=== PATIENT | female | born 1965 | race American Indian/Alaskan Native ===

== ENCOUNTER 2017-05-23 09:37 | Emergency (ER) | payer OTHER ==
[2017-05-23 10:08] LABS: Basophils % (Auto) 0.5 % (0.0-1.8); Eosinophils % (Auto) 3.4 % (0.0-4.3); Hematocrit 41.2 % (30.3-42.9); Hemoglobin 13.5 gm/dl (10.1-14.3); Mean Corpuscular HGB Conc 33 % (30-34); Mean Corpuscular Hemoglobin 29 pg (28-32); Mean Corpuscular Volume 89 fl (79-97); Platelet Count 245 K/mm3 (140-440); Red Blood Count 4.63 M/mm3 (3.65-5.03); Red Cell Distribution Width 14.5 % (13.2-15.2); White Blood Count 4.8 K/mm3 (4.5-11.0)
--- NOTE | 2017-05-23 10:21 | XRay Report ---
ROUTINE CHEST, TWO VIEWS: HISTORY: chest pain. The trachea, heart, mediastinal contour, lung leiva and bony thorax are unremarkable. IMPRESSION: Unremarkable chest x-ray.
[2017-05-23 10:30] LABS: Anion Gap 19 mmol/L; Blood Urea Nitrogen 16 mg/dL (7-17); Calcium 8.5 mg/dL (8.4-10.2); Carbon Dioxide 23 mmol/L (22-30); Chloride 106.4 mmol/L (98-107); Glucose 92 mg/dL (65-100); Potassium 3.9 mmol/L (3.6-5.0); Sodium 144 mmol/L (137-145)
[2017-05-23] MEDS ORDERED: NORCO 10/325 PO ONE (12:34)
--- NOTE | 2017-05-23 15:21 | Emergency Department Report ---
HPI - General Chief Complaint: Chest Pain Time Seen by Provider: 05/23/17 11:45 - HPI HPI: PATIENT IS HERE WITH CHEST PAIN, WORSE WITH INSPIRATION, ACCOMPANIED BY NAUSEA, NO FEVER, NO COUGH. STATES PAIN IS 7/10 SHARP, FEELS LIKE SOMEONE IS SQUEEZING HER THROAT. PATIENT DENIES ANY ALLEVIATING OR EXACERBATING FACTORS. ED Past Medical Hx - Past Medical History Previous Medical History?: Yes Hx Hypertension: Yes Hx GERD: Yes Additional medical history: high cholesterol, - Surgical History Past Surgical History?: Yes Additional Surgical History: Neck surgury x3. hernia "in stomach" - Family History Family history: hypertension - Social History Smoking Status: Light Tobacco Smoker Substance Use Type: None - Medications Home Medications: Home Medications Medication Instructions Recorded Confirmed Last Taken Type Amoxicillin [Trimox CAP] 500 mg PO Q8H #21 capsule 06/15/16 Unknown Rx Ibuprofen [Motrin] 600 mg PO Q8H PRN #20 tablet 06/15/16 Unknown Rx Prednisone [predniSONE 10 mg 10 mg PO .TAPER #1 tab.ds.pk 06/15/16 Unknown Rx (6-Day Pack, 21 Tabs)] ED Review of Systems ROS: Stated complaint: UPPER BACK PAIN/CP/PHAM/COUGH Other details as noted in HPI Comment: All other systems reviewed and negative Respiratory: no symptoms reported Cardiovascular: chest pain, palpitations Physical Exam - Physical Exam Vital Signs: Vital Signs 05/23/17 05/23/17 05/23/17 09:47 11:23 11:30 Temperature 98.7 F Pulse Rate 71 74 Respiratory 20 15 Rate Blood Pressure 135/95 137/82 137/82 Blood Pressure [Left] O2 Sat by Pulse 98 100 Oximetry 05/23/17 05/23/17 05/23/17 11:40 11:50 11:56 Temperature Pulse Rate 77 71 72 Respiratory 13 17 18 Rate Blood Pressure 137/82 137/82 Blood Pressure 137/82 [Left] O2 Sat by Pulse 100 99 99 Oximetry 05/23/17 05/23/17 05/23/17 12:00 12:10 12:20 Temperature Pulse Rate 71 71 77 Respiratory 10 L 15 13 Rate Blood Pressure 135/83 137/82 137/82 Blood Pressure [Left] O2 Sat by Pulse 99 98 99 Oximetry 05/23/17 05/23/17 05/23/17 12:30 12:46 12:50 Temperature Pulse Rate 73 76 71 Respiratory 12 16 16 Rate Blood Pressure 137/82 137/82 137/82 Blood Pressure [Left] O2 Sat by Pulse 100 94 98 Oximetry 05/23/17 05/23/17 05/23/17 13:00 13:10 13:20 Temperature Pulse Rate 66 70 67 Respiratory 12 10 L 14 Rate Blood Pressure 154/94 135/83 135/83 Blood Pressure [Left] O2 Sat by Pulse 100 99 95 Oximetry 05/23/17 05/23/17 13:30 13:40 Temperature Pulse Rate 70 62 Respiratory 11 L 13 Rate Blood Pressure 135/83 135/83 Blood Pressure [Left] O2 Sat by Pulse 99 99 Oximetry Physical Exam: gen: alert and oriented x3 heent: perrla, eomi cv: rrr, nl s1, s2 lungs: cta bila abd: s,nt,nd, pos bs ext: no edema neuro: no deficits psych: normal mood, ED Course Vital Signs 05/23/17 05/23/17 05/23/17 09:47 11:23 11:30 Temperature 98.7 F Pulse Rate 71 74 Respiratory 20 15 Rate Blood Pressure 135/95 137/82 137/82 Blood Pressure [Left] O2 Sat by Pulse 98 100 Oximetry 05/23/17 05/23/17 05/23/17 11:40 11:50 11:56 Temperature Pulse Rate 77 71 72 Respiratory 13 17 18 Rate Blood Pressure 137/82 137/82 Blood Pressure 137/82 [Left] O2 Sat by Pulse 100 99 99 Oximetry 05/23/17 05/23/17 05/23/17 12:00 12:10 12:20 Temperature Pulse Rate 71 71 77 Respiratory 10 L 15 13 Rate Blood Pressure 135/83 137/82 137/82 Blood Pressure [Left] O2 Sat by Pulse 99 98 99 Oximetry 05/23/17 05/23/17 05/23/17 12:30 12:46 12:50 Temperature Pulse Rate 73 76 71 Respiratory 12 16 16 Rate Blood Pressure 137/82 137/82 137/82 Blood Pressure [Left] O2 Sat by Pulse 100 94 98 Oximetry 05/23/17 05/23/17 05/23/17 13:00 13:10 13:20 Temperature Pulse Rate 66 70 67 Respiratory 12 10 L 14 Rate Blood Pressure 154/94 135/83 135/83 Blood Pressure [Left] O2 Sat by Pulse 100 99 95 Oximetry 05/23/17 05/23/17 13:30 13:40 Temperature Pulse Rate 70 62 Respiratory 11 L 13 Rate Blood Pressure 135/83 135/83 Blood Pressure [Left] O2 Sat by Pulse 99 99 Oximetry ED Medical Decision Making - Lab Data Result diagrams: 05/23/17 09:57 05/23/17 09:57 Critical care attestation.: If time is entered above; I have spent that time in minutes in the direct care of this critically ill patient, excluding procedure time. ED Disposition Clinical Impression: Chest pain Disposition: OP ADMIT IP TO THIS HOSP Is pt being admited?: Yes Does the pt Need Aspirin: Yes Condition: Stable Instructions: Chest Pain (ED) Referrals: PRIMARY CARE, [Primary Care Provider] - 3-5 Days
[2017-05-23] MEDS ORDERED: NACL ONE (15:32)
--- NOTE | 2017-05-23 16:03 | Admit Criteria Form ---
Admission Criteria Documentation: CARDIOLOGY GRG Clinical Indications for Admission to Inpatient Care ([place]/check or initial the applicable condition/criteria) Hospital admission is needed for appropriate care of the patient because of ANY ONE of the following: [ ] I. Hemodynamic instability as indicated by ALL of the following (1)(2)(3) (4)(5)(6)(7)(8)(9)(10) [ ]a) Vital sign abnormality not readily corrected by appropriate treatment with 12-24 hours for ANY ONE: [ ]i) Hypotension that persists despite appropriate treatment (eg, volume repletion) [ ]ii) Tachycardiathat persists despite appropriate tx ( e.g., analgesia, fluids, sedation as indicated [ ]iii) Orthostatic vital sign changes that persists despite appropriate treatment (eg, volume repletion) [ ]b) Vital sign abnormailty that is severe indicated by ANY ONE of the following: [ ]i) Inadequate perfusion indicated by ANY ONE of the following: [ ] 1) Lactic acidosis (> 2 mmol/L) [ ] 2) New abnormal capillary refill (> 3 seconds) [ ] 3) Reduced urine output [ ] 4) New altered mental status [ ] 5) Myocardial Ischemia [ ] 6) Other metabolic acidosis (arterial pH <7.35 ) not otherwise explained. [ ]ii) Mean arterial pressure[A] less than 60 mm Hg [ ]iii) Mean arterial pressure[A] less than 70 mm Hg after 30 minutes of appropriate treatment (eg, fluid resuscitation) [ ]iv) Sustained heart rate greater than 120 beats per minute in adult or child 6 years or older[B] [ ]v) IV inotropic or vasopressor medication required to maintain adequate blood pressure or perfusion [ ] II. Severe heart failure as indicated by ANY ONE of the following(17)(18) [ ]a) Respiratory distress [ ]b) Hypotension [ ]c) Debilitating anasarca refractory to therapy (eg, tissue breakdown with infection)[C](19) [ ]d) Cardiac arrhythmias of immediate concern [ ]e) Myocardial ischemia [ ] III. Cardiac arrhythmias or findings of immediate concern indicated by ANY ONE of the following (21)(22): [ ] a) Heart rhythms that are inherently dangerous or unstable indicated by ANY ONE of the following (23)(24)(25): [ ] i) Resuscitated ventricular fibrillation or cardiac arrest [ ] ii) Ventricular escape rhythm [ ] iii) Sustained ventricular tachycardia (30 seconds or more of ventricular rhythm at greater than 100 beats per minute) [ ] iv) Nonsustained ventricular tachycardia and ANY ONE of the following: [ ] 1) Suspected cardiac ischemia as cause or consequence of ventricular tachycardia [ ] 2) Acute myocarditis [ ] b) Unstable cardiac conduction defects indicated by ANY ONE of the following(25)(26)(27) [ ] i) Type II second-degree atrioventricular block [ ]ii) Third-degree atrioventricular block [ ]iii) New-onset left bundle branch block with suspected myocardial ischemia [ ]c) Any heart rhythm and ANY ONE of the following (23)(24)(28)(29) (30) [ ] i) Continuous long-term ECG monitoring needed (e.g., initiation of drug requiring monitoring for more than 24 hours) [ ] ii) Patient has automatic implanted cardioverter defibrillator that is repeatedly firing, malfunctioning, or in need of immediate adjustment of settings beyond the scope of ambulatory or observation care [ ]d) Heart rhythms of concern due to ANY ONE of the following: [ ] i) Hypotension [ ] ii) Respiratory distress [ ] iii) Association with other significant symptoms (e.g., bradycardia with syncope or ongoing dizziness, supraventricular tachycardia with chest pain (28)(29)(31) [ ] IV. Monitoring for cardiac contusion beyond the scope of observation care needed [A](32)(33)(34) [ ] V. Surgical or device complication (e.g., valve replacement complication , ICD disfunction or pacemaker dysfunction) (49)(50)(51)(52)(53)(54) [ ] . Inpatient palliative care needed. [F](51)(52) Also use Inpatient Palliative Care Criteria [ ] VII. Nonbacterial thrombotic (marantic) endocarditis(43)(44)(55)(56)(57) [X ] VIII. Cardiology condition, symptom, or finding for which emergency and observation care has failed or are not considered appropriate. [ ] IX. Acute valvular disease requiring inpatient as indicated by ANY ONE of the following (40)(41) [ ]a) Acute valvular regurgitation (42) [ ]b) Noninfectious valvulitis (43)(44) [ ]c) Obstructive valve thrombosis (45)(46) [ ]d) Paravalvular leak(47)(48) [ ]e) Other significant valvular disorder remaining after emergency or observation level of care (as appropriate) [ ]X. Pericardial disease requiring inpatient treatment as indicated by ANY ONE of the following (35)(36)(37)(38) [ ]a) Suspected tamponade [ ]b) Hemopericardium [ ]c) Other significant pericardial disorder remaining after emergency or observation level of care (as appropriate)(39) [ ] XI. Cardiac ischemia beyond scope of emergency and observation care. [ ] XII. Cyanotic heart disease requiring inpatient care as indicated by 1 or more of the following(58)(59)(60): [ ]a) Acute onset of hypoxemia [ ]b) Exacerbation [ ] XIII. Hypertension requiring inpatient treatment as indicated by ANYONE of the following(11)(12)(13)(14): [ ]a) Severe hypertension (SBP greater than 180 mm Hg or DBP greater than 110 mm Hg, or greater than the 95th percentile for age, gender, and height in pediatric patients) that cannot be controlled (eg, to SBP less than 160 mm Hg and DBP less than 100 mm Hg) by emergency department or observation care treatment(15) [ ]b) Acute end organ damage secondary to hypertension (SBP greater than 140 mm Hg or DBP greater than 90 mm Hg) as indicated by ANYONE of the following: [ ] i) Hypertensive encephalopathy (eg, Altered mental status)(16) [ ] ii) Cerebral infarction [ ] iii) Intracranial hemorrhage [ ] iv) Myocardial ischemia or infarction [ ] v) Heart failure (eg, pulmonary edema) [ ] vi) Aortic dissection [ ] vii) Increased creatinine (new) with reduction of more than 50% in estimated glomerular filtration rate from baseline [ ] viii) Papilledema [ ] ix) Retinal hemorrhage [ ] x) Microangiopathic hemolytic anemia [ ] xi) Seizure [ ] xii) Other significant finding secondary to hypertension [ ] XIV. Complications of transplanted heart indicated by ANY ONE of the following(61): [ ]a) Acute graft rejection requiring inpatient management (eg, intravenous imunosuppression)(62)(63) [ ]b) Acute graft heart failure indicated by ANY ONE of the following(64): [ ] i) Hemodynamic instability [ ] ii) Cardiac arrhythmias of immediate concern [ ] iii) Pulmonary edema that is very severe (eg, mechanical ventilation needed, imminent or likely, need for 100% oxygen to keep oxygen saturation above 90%) [ ] iv) Pulmonary edema that is persistent as indicated by ALL of the following: [ ] 1) New need for oxygen therapy to keep oxygen saturation above 90 % (or increased FiO2 need from baseline) [ ] 2) Has not improved sufficiently with emergency department or observation care IV diuretics or other heart failure treatments[E]. [ ] iv) Altered mental status that is severe or persistent [ ] iv) Increased creatinine (new on laboratory test) with reduction of more than 50% in estimated glomerular filtration rate from baseline [ ] iv) Progressively (ongoing) rising creatinine (known from past laboratory test) with reduction of more than 25% in estimated glomerular filtration rate from baseline [ ] iv) Acute renal failure [ ] iv) Acute peripheral ischemia (eg, examination shows pulseless, cool, mottled, or cyanotic extremity) [ ] iv) Pulmonary artery catheter monitoring needed [ ] iv) Other sign or symptom of heart failure requiring inpatient treatment (ie, too severe or not responsive to outpatient and observation care treatment) [ ]c) Infection requiring inpatient management (eg, Hemodynamic instability, need for intravenous antimicrobial treatment)(66)(67)(68)(69)(70) [ ]d) Cardiac allograft vasculopathy requiring inpatient management (eg evidence of cardiacischemia)(71) [ ]e) Other complication of transplanted heart (eg, stroke, severe pulmonary hypertension, severe valvular dysfunction) requiring inpatient management(72) The original [employer] content created by [employer] has been revised. The portions of the content which have been revised are identified through the use of italic text or in bold, and [facility] has neither reviewed nor approved the modified material. All other unmodified content is copyright [employer] [facility]. Please see references footnoted in the original [employer] [facility] edition 2017 Admission Criteria Met: Yes
--- NOTE | 2017-05-23 16:49 | Cat Scan Report ---
CTA of the chest: Chest pain. Stress administration using pulmonary embolus protocol transverse images were obtained through the chest into the upper abdomen. Coronal and sagittal 2-D reformatted images are obtained in addition to 3-D MIP image. There is good opacification of the pulmonary arterial vasculature. No filling defect identified. There no filling defects in the cardiac chambers. The thoracic aorta is normal in size and contour. No hilar or mediastinal adenopathy appreciated. There are diffuse emphysematous cystic-appearing changes in the upper lobes bilaterally. There is a 7.8 mm noncalcified subpleural nodule in the posterior right lung on image 125 of series 2. A nodular appearing density is also identified at the extreme right lung base posteriorly but this may be related to adjacent atelectasis. No other pulmonary nodule is identified. Bibasilar areas of atelectasis are present. No abnormality identified on the abdominal images. Impression: 1. Indeterminate right pulmonary nodule. Low suspicion of right basilar nodule which is more likely atelectasis. 2. Emphysematous-appearing changes in both upper lobes. 3. No evidence of pulmonary embolus. Recommendation: Right pulmonary nodule/nodules need followup. If the patient is not a smoker nor history of malignancy repeat exam in 4-6 months is recommended.
[2017-05-23 18:06] VITALS: BP 139/84
--- NOTE | 2017-06-01 07:47 | Short Stay Summary ---
Short Stay Documentation Narrative H&P: 51 YO Female with HTN, GERD, HLD, Nicotine Dependence presents to ED for evaluation of chest pain. Pt seen and evaluated in ED and treated with serial cardiac enzymes, ekg, telemetry, and supportive care. D dimer was normal. Pt medically optimized and bacl to usual state of health. Pt symptoms resolved. Pt discharged home and instructed to f/u pcp 1wk, cardiology prn. - History Past Medical History: GERD, hypertension, hyperlipidemia Past Surgical History: hernia repair, Other (neck surgery) Social history: single, smoking, no alcohol abuse, no prescription drug abuse - Allergies and Medications Current Medications: Allergies No Known Allergies Allergy (Verified 06/15/16 07:57) Home Medications Medication Instructions Recorded Confirmed Last Taken Type Cyclobenzaprine HCl [Flexeril 5 MG 5 mg PO BID PRN #20 tab 05/23/17 Unknown Rx TAB] Hydrochlorothiazide [Hctz] 12.5 mg PO QDAY 05/23/17 05/23/17 Unknown History Lisinopril [Zestril TAB] 40 mg PO QDAY 05/23/17 05/23/17 Unknown History Pantoprazole [Protonix] 40 mg PO QDAY #30 tablet 05/23/17 Unknown Rx Ranitidine HCl [Zantac 150 MG TAB] 150 mg PO BID 05/23/17 05/23/17 Unknown History Rosuvastatin (Nf) [Crestor] 10 mg PO QHS 05/23/17 05/23/17 Unknown History traMADol [Ultram] 50 mg PO Q4HR PRN 05/23/17 05/23/17 Unknown History - Physical exam General appearance: no acute distress Breasts: no change in shape, no swelling Gastrointestinal: normal Female Genitourinary: normal Extremities: pulses symmetrical, No edema - Disposition Condition at discharge: Stable Disposition: DC-01 TO HOME OR SELFCARE - Discharge Diagnoses (1) Chest pain Status: Acute Qualifiers: Chest pain type: C Ischemic chest pain type: I Comment: atypical, secondary to gerd (2) GERD (gastroesophageal reflux disease) Status: Acute Qualifiers: Esophagitis presence: E Comment: ppi therapy (3) HTN (hypertension) Status: Acute Qualifiers: Hypertension type: essential hypertension Qualified Code(s): I10 - Essential (primary) hypertension Comment: resume home medication (4) Nicotine dependence Status: Acute Qualifiers: Nicotine product type: N Substance use status: in remission Comment: supportive care, cessation counseling Short Stay Discharge Plan Follow up with: PRIMARY CARE, [Primary Care Provider] - 3-5 Days Prescriptions: Cyclobenzaprine HCl [Flexeril 5 MG TAB] 5 mg PO BID PRN #20 tab PRN Reason: Spasms Pantoprazole [Protonix] 40 mg PO QDAY #30 tablet
--- NOTE | 2017-06-05 10:04 | History and Physical Report ---
History of Present Illness Chief complaint: my chest hurts History of present illness: 51 YO Female with HTN, GERD, HLD, Nicotine Dependence presents to ED for evaluation for chest pain. Pt seen and evaluated in ED and found to have atypical chest pain. Pt underwent serial cardiac enzymes, ekg, and telemetry monitoring were not indicative of acute ischemia. D dimer was negative. Pt symptoms found secondary to GERD and muscle spasms. PT medically optimized and back to usual state of health. Pt discharged home and instructed to f/u pcp 1wk. Past History Past Medical History: GERD, hypertension, hyperlipidemia Past Surgical History: hernia repair, Other (neck surgery) Social history: single, smoking. denies: alcohol abuse, prescription drug abuse Family history: hypertension Medications and Allergies Allergies Allergy/AdvReac Type Severity Reaction Status Date / Time No Known Allergies Allergy Verified 06/15/16 07:57 Home Medications Medication Instructions Recorded Confirmed Last Taken Type Cyclobenzaprine HCl [Flexeril 5 MG 5 mg PO BID PRN #20 tab 05/23/17 Unknown Rx TAB] Hydrochlorothiazide [Hctz] 12.5 mg PO QDAY 05/23/17 05/23/17 Unknown History Lisinopril [Zestril TAB] 40 mg PO QDAY 05/23/17 05/23/17 Unknown History Pantoprazole [Protonix] 40 mg PO QDAY #30 tablet 05/23/17 Unknown Rx Ranitidine HCl [Zantac 150 MG TAB] 150 mg PO BID 05/23/17 05/23/17 Unknown History Rosuvastatin (Nf) [Crestor] 10 mg PO QHS 05/23/17 05/23/17 Unknown History traMADol [Ultram] 50 mg PO Q4HR PRN 05/23/17 05/23/17 Unknown History Review of Systems Constitutional: no fever, no chills Ears, nose, mouth and throat: no ear pain, no tinnitis, no nasal congestion Breasts: no change in shape, no swelling Cardiovascular: chest pain Respiratory: no cough, no cough with sputum Gastrointestinal: no nausea, no vomiting, no diarrhea Genitourinary Female: no pelvic pain, no flank pain, no urinary frequency, no stress incontinence Rectal: no pain, no incontinence Musculoskeletal: no neck pain, no arm numbness/tingling, no shooting leg pain Integumentary: no rash, no sores, no jaundice Neurological: no transient paralysis, no parathesias, no seizures, no ataxia Psychiatric: no anxiety, no insomnia, no disorientation Endocrine: no heat intolerance, no polyphagia Hematologic/Lymphatic: no easy bruising, no easy bleeding Allergic/Immunologic: no urticaria, no allergic rhinitis Exam - Constitutional Vitals: Temp Pulse Resp BP Pulse Ox 98.7 F 76 20 139/84 100 05/23/17 09:47 05/23/17 18:00 05/23/17 18:07 05/23/17 18:00 05/23/17 18:07 General appearance: Present: no acute distress, well-nourished - EENT Eyes: Present: PERRL ENT: hearing intact, clear oral mucosa - Neck Neck: Present: supple, normal ROM - Respiratory Respiratory effort: normal Respiratory: bilateral: CTA - Cardiovascular Heart Sounds: Present: S1 & S2. Absent: rub, click - Extremities Extremities: pulses symmetrical, No edema Peripheral Pulses: within normal limits - Abdominal General gastrointestinal: Present: soft, non-tender, non-distended, normal bowel sounds Female genitourinary: Present: normal - Integumentary Integumentary: Present: clear, warm, dry - Musculoskeletal Musculoskeletal: gait normal, strength equal bilaterally - Psychiatric Psychiatric: appropriate mood/affect, intact judgment & insight - Neurologic Neurologic: CNII-XII intact, moves all extremities Results - Labs CBC & Chem 7: 05/23/17 09:57 05/23/17 09:57 Assessment and Plan - Patient Problems (1) Chest pain Status: Acute Qualifiers: Chest pain type: C Ischemic chest pain type: I Plan to address problem: atypical chest pain: secondary to GERD, D/C home , f/u pcp 1wk, (2) GERD (gastroesophageal reflux disease) Status: Acute Qualifiers: Esophagitis presence: E Plan to address problem: ppi therapy (3) HTN (hypertension) Status: Acute Qualifiers: Hypertension type: H Plan to address problem: resume home medication, f/u pcp 1wk (4) Nicotine dependence Status: Acute Qualifiers: Nicotine product type: N Substance use status: S Plan to address problem: Pt counseled, Pt refused to pick quit date
== END 2017-05-23 18:54 | disposition admitted as inpatient to this hospital (09) ==
LOC: ED 09:37
DX: R07.9 Chest pain, unspecified (principal); I10 Essential (primary) hypertension; K21.9 Gastro-esophageal reflux disease without esophagitis; F17.200 Nicotine dependence, unspecified, uncomplicated
CPT/HCPCS: 36415; 71020; 71275; 80048; 84484; 85025; 85379; 93005; 93010; 99285; Q9967

== ENCOUNTER 2017-10-17 08:44 | Emergency (ER) | payer SELFPAY ==
[2017-10-17] MEDS ORDERED: TYLENOL PO ONE (09:39)
[2017-10-17 09:41] LABS: Basophils % (Auto) 0.5 % (0.0-1.8); Hematocrit 42.1 % (30.3-42.9); Hemoglobin 13.7 gm/dl (10.1-14.3); Lymphocytes # (Auto) 1.6 K/mm3 (1.2-5.4); Lymphocytes % (Auto) 27.1 % (13.4-35.0); Mean Corpuscular HGB Conc 33 % (30-34); Mean Corpuscular Hemoglobin 29 pg (28-32); Mean Corpuscular Volume 88 fl (79-97); Monocytes # (Auto) 0.7 K/mm3 (0.0-0.8); Monocytes % (Auto) 11.1 % (0.0-7.3); Platelet Count 237 K/mm3 (140-440); Red Blood Count 4.77 M/mm3 (3.65-5.03); Red Cell Distribution Width 14.1 % (13.2-15.2)
[2017-10-17] MEDS ORDERED: TYLENOL ONE (09:42)
[2017-10-17 09:47] LABS: BUN/Creatinine Ratio 13; Blood Urea Nitrogen 10 mg/dL (7-17); Calcium 8.6 mg/dL (8.4-10.2); Hemolysis Index 6
--- NOTE | 2017-10-17 10:06 | XRay Report ---
ROUTINE CHEST, TWO VIEWS: HISTORY: Shortness of breath. The trachea, heart, mediastinal contour, lung leiva and bony thorax are unremarkable. IMPRESSION: Unremarkable chest x-ray.
--- NOTE | 2017-10-17 11:44 | Emergency Department Report ---
HPI - General Chief Complaint: Upper Respiratory Infection Time Seen by Provider: 10/17/17 11:42 - HPI HPI: Patient here reports flulike symptoms and body ache with chest soreness to mid chest with coughing and headache for 3 days. She reports that she is having fever and chills. Patient reports that she's been having symptoms for 3 days but fever started yesterday. She's been using [id number] cough and cold medication without any help. Patient has a history of acid reflux hypertension , high cholesterol and chronic neck pain. She had a hysterectomy in the past. Patient denies any shortness of breath. Denies any history of heart disease. She is taking hydrochlorothiazide and lisinopril for high blood pressure and medication for acid reflux and high cholesterol. Denies abdominal pain or back pain. Denies any urinary burning frequency or urgency. Patient denies any nausea or vomiting. Generalized pain is 10 out of 10 and aching. Better at rest and worse with movement ED Past Medical Hx - Past Medical History Previous Medical History?: Yes Hx Hypertension: Yes Hx GERD: Yes Additional medical history: high cholesterol, - Surgical History Past Surgical History?: Yes Additional Surgical History: Neck surgury x3. hernia "in stomach", Partial hysterectomy - Family History Family history: hypertension - Social History Smoking Status: Former Smoker Substance Use Type: Prescribed - Medications Home Medications: Home Medications Medication Instructions Recorded Confirmed Last Taken Type Cyclobenzaprine HCl [Flexeril 5 MG 5 mg PO BID PRN #20 tab 05/23/17 Unknown Rx TAB] Hydrochlorothiazide [Hctz] 12.5 mg PO QDAY 05/23/17 05/23/17 Unknown History Lisinopril [Zestril TAB] 40 mg PO QDAY 05/23/17 05/23/17 Unknown History Pantoprazole [Protonix] 40 mg PO QDAY #30 tablet 05/23/17 Unknown Rx Ranitidine HCl [Zantac 150 MG TAB] 150 mg PO BID 05/23/17 05/23/17 Unknown History Rosuvastatin (Nf) [Crestor] 10 mg PO QHS 05/23/17 05/23/17 Unknown History traMADol [Ultram] 50 mg PO Q4HR PRN 05/23/17 05/23/17 Unknown History Cetirizine HCl [ZyrTEC] 10 mg PO QAM 14 Days #14 capsule 10/17/17 Unknown Rx Ibuprofen [Motrin] 600 mg PO Q6H PRN 4 Days #16 tablet 10/17/17 Unknown Rx Oseltamivir [Tamiflu] 75 mg PO BID 10 Days #5 cap 10/17/17 Unknown Rx guaiFENesin/CODEINE [Robitussin AC] 10 ml PO Q12H PRN 5 Days #100 10/17/17 Unknown Rx oral.liqd ED Review of Systems ROS: Stated complaint: CP/BODY ACHE/EASLEY Other details as noted in HPI Comment: All other systems reviewed and negative Constitutional: no symptoms reported Eyes: denies: eye pain, eye discharge ENT: throat pain, congestion. denies: ear pain Respiratory: denies: cough, shortness of breath, SOB with exertion, SOB at rest , stridor, wheezing Cardiovascular: chest pain. denies: palpitations, dyspnea on exertion, orthopnea, edema, syncope, paroxysmal nocturnal dyspnea Gastrointestinal: denies: abdominal pain, nausea, vomiting, diarrhea, constipation Genitourinary: denies: urgency, dysuria, frequency, hematuria, discharge Musculoskeletal: myalgia. denies: back pain, arthralgia Skin: denies: rash Neurological: denies: headache, numbness, paresthesias, confusion, abnormal gait , vertigo Physical Exam - Physical Exam Vital Signs: Vital Signs 10/17/17 08:58 Temperature 101.3 F H Pulse Rate 111 H Respiratory 20 Rate Blood Pressure 125/100 O2 Sat by Pulse 98 Oximetry Vital Signs 10/17/17 10/17/17 10/17/17 08:58 13:20 13:31 Temperature 101.3 F H 99.8 F H Pulse Rate 111 H 102 H 98 H Respiratory 20 20 Rate Blood Pressure 125/100 Blood Pressure 108/62 [Left] Blood Pressure 97/65 [Right] O2 Sat by Pulse 98 95 Oximetry General: This is a 51-year-old female well-nourished well-developed in no acute distress Physical Exam: Head: Normocephalic, atraumatic, no abrasion, no bruising and no contusion. Eyes: Biateral pupils equal and reactive to light, bilateral EOM intact.. Bilateral conjunctival and sclera without injection, normal accommodation. No nystagmus Mouth: Moist, no pharyngeal exudate or erythema. No peritonsillar abscesses. Uvula is midline and oral airways patent. Ears: Bilateral TM congested without erythema. Bilateral EAC without any redness swelling or drainage. No mastoid bone tenderness Nose bilateral nasal turbinates congested with erythema and clear drainage. Maxillary and frontal sinuses non-tender to palpate. Neck: Supple, No Cervical adenopathy, full range of motion and no C-spine tenderness. No swelling or tracheal deviation normal reflexes Cardiovascular: S1, S2. Tachycardia at 111. Regular rhythm. No murmur. Capillary refill is less then 3 seconds. Lungs: Clear to auscultate bilaterally. No rhonchi, wheezes or rales. No chest wall tenderness. No chest contusion. No bruising to chest. Dry cough MSK: Strength 5/5 in all extremities. No joint deformity or crepitus. Normal inspection. Full range of motion to all extremities. No laceration, abrasion or ecchymotic area noted. Patient able to fully flex and extend bilateral knees without any difficulties. Bilateral knees nontender to palpate. Abdomen: Non-tender to palpate in all quadrants, no guarding or rebound tenderness, positive bowel sounds in all quadrants. No CVA tenderness. No hernia, bruit or mass. No rigidity or distention. Extremities: No clubbing, cyanosis or edema. +2 pulses. No neurovascular compromise Skin: Clean, dry and intact. No rash or lesions. Neurological: GCS at 15, Pt is alert and oriented 3 speech is clear . Bilateral hand glove cleaner strong and equal. Normal gait. Negative Romberg and no pronator drift. Normal Reflexes. No motor or sensory deficit Back: No vertebral tenderness, no paraspinal tenderness. Ambulates without difficulties Psych: Normal mood and behavior ED Course Vital Signs 10/17/17 08:58 Temperature 101.3 F H Pulse Rate 111 H Respiratory 20 Rate Blood Pressure 125/100 O2 Sat by Pulse 98 Oximetry Vital Signs 10/17/17 10/17/17 08:58 13:20 Temperature 101.3 F H 99.8 F H Pulse Rate 111 H 102 H Respiratory 20 20 Rate Blood Pressure 125/100 Blood Pressure 97/65 [Right] O2 Sat by Pulse 98 95 Oximetry Vital Signs 10/17/17 10/17/17 10/17/17 08:58 13:20 13:31 Temperature 101.3 F H 99.8 F H Pulse Rate 111 H 102 H 98 H Respiratory 20 20 Rate Blood Pressure 125/100 Blood Pressure 108/62 [Left] Blood Pressure 97/65 [Right] O2 Sat by Pulse 98 95 Oximetry - Reevaluation(s) Reevaluation #1: 10/17/17 12:57 Patient stable and in no distress. Tolerated 2 cups of apple juice and water without any difficulties. He was given Tylenol 650 mg by mouth this morning and this afternoon she was given Motrin 800 mg by mouth. Chest x-ray with negative findings. Strep test is negative and influenza pending EKG stable. Blood culture collected and sent and CBC and BMP is stable Reevaluation #2: 10/17/17 13:11 Patient positive for influenza B. Negative for influenza A. Patient says she feels better we'll check vital signs prior to discharge. ED Medical Decision Making - Lab Data Result diagrams: 10/17/17 09:15 10/17/17 09:15 Lab Results 10/17/17 10/17/17 Range/Units 09:15 09:15 WBC 6.0 (4.5-11.0) K/mm3 RBC 4.77 (3.65-5.03) M/mm3 Hgb 13.7 (10.1-14.3) gm/dl Hct 42.1 (30.3-42.9) % MCV 88 (79-97) fl MCH 29 (28-32) pg MCHC 33 (30-34) % RDW 14.1 (13.2-15.2) % Plt Count 237 (140-440) K/mm3 Lymph % (Auto) 27.1 (13.4-35.0) % Sevier % (Auto) 11.1 H (0.0-7.3) % Eos % (Auto) 0.0 (0.0-4.3) % Baso % (Auto) 0.5 (0.0-1.8) % Lymph # 1.6 (1.2-5.4) K/mm3 Sevier # 0.7 (0.0-0.8) K/mm3 Eos # 0.0 (0.0-0.4) K/mm3 Baso # 0.0 (0.0-0.1) K/mm3 Seg Neutrophils % 61.3 (40.0-70.0) % Seg Neutrophils # 3.7 (1.8-7.7) K/mm3 Sodium 140 (137-145) mmol/L Potassium 3.9 (3.6-5.0) mmol/L Chloride 98.8 (98-107) mmol/L Carbon Dioxide 26 (22-30) mmol/L Anion Gap 19 mmol/L BUN 10 (7-17) mg/dL Creatinine 0.8 (0.7-1.2) mg/dL Estimated GFR > 60 ml/min BUN/Creatinine Ratio 13 % Glucose 105 H (65-100) mg/dL Calcium 8.6 (8.4-10.2) mg/dL Blood cultures are pending Traffic test is negative - EKG Data -: EKG Interpreted by Me (read by attending physician) Rate: tachycardia - EKG Data When compared to previous EKG there are: no significant change Interpretation: no acute changes (sinus tachycardia at 106) - Radiology Data Radiology results: report reviewed Chest x-ray revealed no acute cardiopulmonary findings - Medical Decision Making ED course: Pt reports that she's been having flulike symptoms and started having fever yesterday. She states that she took cough and cold medication but it is not helping. She also reports that she has some chest discomfort with coughing. EKG reveals sinus tachycardia at 106, CBC and BMP is stable, strep test is negative. Blood culture sent and pending. Chest x-ray negative for any cardiopulmonary. Patient orally hydrated in emergency room with 3 cups of cranberry juice that she tolerated that well without any vomiting. Her chest pain is only related to cough . She says she's been coughing so much that her chest is sore. Patient received Tylenol 650 mg earlier this morning for fever and body aches. She received additional Motrin 800 mg which relieved her body ache and her fever is normalized. Heart rate is at 102 which is better. Blood pressure is stabilized. Patient discharged home to follow-up with her primary care physician in 2 days and or to return to the emergency room if she is not feeling any better or if her condition worsens. Discharged home with prescription for Tamiflu, Motrin, Zyrtec, Flonase and guaifenesin with codeine Critical care attestation.: If time is entered above; I have spent that time in minutes in the direct care of this critically ill patient, excluding procedure time. ED Disposition Clinical Impression: Influenza B, Upper respiratory infection with cough and congestion, Fever in adult, Body aches, Elevated blood pressure reading with diagnosis of hypertension Disposition: DC-01 TO HOME OR SELFCARE Is pt being admited?: No Does the pt Need Aspirin: No Condition: Stable Instructions: Influenza (ED), Upper Respiratory Infection (ED), Hypertension ( ED), Acute Cough (ED) Additional Instructions: Please increase her fluid intake to 2-3 L of liquid to include water and Gatorade per day. Follow-up the primary care physician in 2 days and if he do not have one he can follow-up at [facility] Take Motrin as prescribed and this will help to reduce fever and prevent dehydration Take Tamiflu as instructed Rest for [address] heavy machinery while taking an cough medicine with codeine as this medication causes drowsiness Your blood pressure was elevated in the emergency room and this could be because you are ill so please keep a record of the blood pressure on a daily basis and take to your primary care physician for evaluation. He is continue taking her blood pressure medication as prescribed by her primary care physician Prescriptions: Cetirizine HCl [ZyrTEC] 10 mg PO QAM 14 Days #14 capsule guaiFENesin/CODEINE [Robitussin AC] 10 ml PO Q12H PRN 5 Days #100 oral.liqd PRN Reason: Cough Ibuprofen [Motrin] 600 mg PO Q6H PRN 4 Days #16 tablet PRN Reason: PAIN ANF FEVER Oseltamivir [Tamiflu] 75 mg PO BID 10 Days #5 cap Referrals: your, primary care physician [Other] - 10/19/17 [facility] [Outside] - 3-5 Days Forms: Accompanied Note, Work/School Release Form(ED)
[2017-10-17] MEDS ORDERED: MOTRIN PO ONE (12:27)
[2017-10-17 13:33] VITALS: BP 108/62
== END 2017-10-17 13:39 | disposition home or self-care (01) ==
LOC: ED 08:44
DX: J11.1 Influenza due to unidentified influenza virus with other respiratory manifestations (principal); I10 Essential (primary) hypertension; K21.9 Gastro-esophageal reflux disease without esophagitis; Z87.891 Personal history of nicotine dependence
CPT/HCPCS: 36415; 71046; 80048; 85025; 87040; 87116; 87400; 87430; 93005; 93010; 99284